=== PATIENT | female | born 1965 | race African-American/Black ===

== ENCOUNTER 2019-08-28 13:25 | Emergency (ER) | payer MEDICAID, SELFPAY ==
[2019-08-28 13:43] VITALS: BP 135/78; PULSE 68; RESP 16; TEMP 36.8; O2SAT 99
--- NOTE | 2019-08-28 13:54 | ED.GENADULT ---
HPI - General Adult General Chief complaint: Skin/Abscess/Foreign Body Stated complaint: pos bed bug/face Time Seen by Provider: 08/28/19 13:54 Source: patient Mode of arrival: ambulatory Limitations: no limitations History of Present Illness HPI narrative: 54-year-old female patient presents to the [facility] with complaints of a rash. Patient states that she spent the night at a friend's house couple of days ago and slept on an air mattress on the floor. Patient states that her friend's house was recently treated for bedbugs. Patient states she started having an itchy rash to bilateral hands, wrist, bilateral ears, neck and to the face. Patient states she is also had some itchiness rash to the lower back. Denies any rash to the trunk, bilateral lower extremities. Patient denies any fevers that she is aware of. Patient states she has tried some dake-fip-[id number] steroid ointment to help with her symptoms. Related Data Home Medications Medication Instructions Recorded Confirmed lorazepam 08/28/19 Allergies Allergy/AdvReac Type Severity Reaction Status Date / Time No Known Allergies Allergy Verified 08/28/19 13:50 Review of Systems Review of Systems: Narrative: CONSTITUTIONAL: Denies fever, chills, or sweats. EYES: Denies visual changes, redness, or discharge. ENT: Denies rhinorrhea, congestion, sore throat, or otalgia. CARDIOVASCULAR: Denies chest pain, palpitations, or edema. RESPIRATORY: Denies cough or dyspnea. GASTROINTESTINAL: Denies abdominal pain, nausea, vomiting, or diarrhea. GENITOURINARY: Denies dysuria or hematuria. SKIN: Positive rash with itching x2 days. MUSCULOSKELETAL: Denies back pain, joint pain, or myalgia. NEUROLOGIC: Denies headache, numbness, or weakness. PSYCHIATRIC: Denies anxiety or depression. PMFSH Comments At the time of my signature I agree with nursing past medical history, surgical, social, and family history. There is no relevant family history pertinent to the presenting complaint. Exam Narrative: Exam Narrative: GENERAL: Well-appearing, well-nourished, and in no acute distress. HEAD: Normocephalic, atraumatic. EYES: PERRLA and EOMI. ENT: Nares clear, no rhinorrhea or epistaxis. Mucous membranes moist. NECK: Supple. No lymphadenopathy CHEST: Clear to auscultation. No respiratory distress. HEART: Regular rate and rhythm. No murmur heard. Normal peripheral pulses. ABDOMEN: Soft, nontender, nondistended, normal active bowel sounds. EXTREMITIES: Normal range of motion. No edema. SKIN: Warm, dry, patient has rash to bilateral hands, wrists, bilateral sides of her face, bilateral ears and various to the lower back. The left ear does appear slightly swollen, red with slight warmth noted. There is 2 areas that appear to be blisters that have crusted with small amount of yellow serosanguineous drainage coming from the area. The rash does appear to be a welt-like irregular rash that is flat. There is bites noted around the the rash area to certain places. Especially near the hands. NEURO: No focal deficits. Alert and oriented x3. Course Vital Signs Vital signs: Vital Signs Temperature 36.8 C 08/28/19 13:43 Pulse Rate 68 08/28/19 13:43 Respiratory Rate 16 08/28/19 13:43 Blood Pressure 135/78 08/28/19 13:43 Pulse Oximetry 99 08/28/19 13:43 Temperature 36.8 C 08/28/19 13:43 Pulse Rate 68 08/28/19 13:43 Respiratory Rate 16 08/28/19 13:43 Blood Pressure 135/78 08/28/19 13:43 Pulse Oximetry 99 08/28/19 13:43 Vital signs reviewed Medical Decision Making Differential Diagnosis Differential Diagnosis: Differential diagnosis: Contact dermatitis, poison jojo, poison sumac, psoriasis, eczema, allergic reaction, drug reaction, scabies, tinea syphilis, lung disease, viral exanthema, pityriasis, erythema multiforme. Notify patient that the wound to the left ear does appear infected therefore I am to discharge her home with a topical antibiotic ointment as
== END 2019-08-28 14:17 | disposition home or self-care (01) ==
PROVIDERS: Emergency Provider Nurse Practitioner Family
DX: H60.12 Cellulitis of left external ear (principal); S00.462A Insect bite (nonvenomous) of left ear, initial encounter; S00.86XA Insect bite (nonvenomous) of other part of head, initial encounter; S60.562A Insect bite (nonvenomous) of left hand, initial encounter; S60.561A Insect bite (nonvenomous) of right hand, initial encounter; S60.862A Insect bite (nonvenomous) of left wrist, initial encounter; S60.861A Insect bite (nonvenomous) of right wrist, initial encounter; W57.XXXA Bitten or stung by nonvenomous insect and other nonvenomous arthropods, initial encounter; F41.9 Anxiety disorder, unspecified
CPT/HCPCS: 99203; G0463